=== PATIENT | female | born 1965 | race Caucasian/White ===

== ENCOUNTER 2019-05-02 09:03 | Day surgery (SDC) | payer OTHER ==
[2019-05-02] VITALS (10 sets, daily range): BP systolic 124–183; BP diastolic 55–117
[~2019-05-02] VITALS: Ht 175.3 cm; Wt 81.8 kg
[~2019-05-02 09:03] MED LIST: lisinopril 20mg tablet PO ONE
[2019-05-02] MEDS ORDERED: diphenhydrAMINE 25mg capsule PO PRN (09:35)
[2019-05-02] MEDS ORDERED: normal saline 1,000 ML IV SCH (09:35)
[2019-05-02] MEDS ORDERED: midazolam 2 mg/2 ml injection ONE ×3 (09:45→11:23)
[2019-05-02] MEDS ORDERED: iohexol 350 MG/ML 50ML vial IV ONE (09:46)
[2019-05-02] MEDS ORDERED: fentaNYL/PF 50MCG/1 ML 2ML syringe ONE (09:46)
[2019-05-02] MEDS ORDERED: LIDOcaine 1% (10mg/ml)w/preservative injection 20ml MDV ONE (09:46)
[2019-05-02] MEDS ORDERED: iohexol 350MG/ML 100ml bottle IV ONE ×3 (09:46→11:42)
[2019-05-02] MEDS ORDERED: insulin regular, human 10 units/0.1 ml syringe IV STA (10:09)
[2019-05-02 10:27] LABS: BASOPHILS # (AUTO) 0.1 X10'3 (0-0.2); BASOPHILS % (AUTO) 1.4 % (0-1); EOSINOPHILS # (AUTO) 0.1 X10'3 (0-0.9); EOSINOPHILS % (AUTO) 2.3 % (0-6); HEMATOCRIT 40.5 % (35.0-45.0); HEMOGLOBIN 13.9 g/dl (12.0-16.0); LYMPHOCYTES # (AUTO) 1.3 X10'3 (1.1-4.8); LYMPHOCYTES % (AUTO) 26.7 % (21-51); MEAN CORPUSCULAR HEMOGLOBIN 32.6 PG (27.0-31.0); MEAN CORPUSCULAR HGB CONC 34.4 g/dL (33.0-36.5); MEAN CORPUSCULAR VOLUME 94.7 FL (78-98); MEAN PLATELET VOLUME 10.5 FL (7.4-10.4); MONOCYTES # (AUTO) 0.5 X10'3 (0-0.9); MONOCYTES % (AUTO) 11.2 % (2-12); NEUTROPHILS # (AUTO) 2.7 X10'3 (1.8-7.7); NEUTROPHILS % (AUTO) 58.4 % (42-75); PLATELET COUNT 134 X10'3 (140-440); RED BLOOD COUNT 4.28 X10'6 (4.20-5.60); RED CELL DISTRIBUTION WIDTH 12.3 % (11.5-14.5); WHITE BLOOD COUNT 4.7 X10'3 (4.5-11.0)
[2019-05-02 10:35] LABS: ALBUMIN 3.8 G/DL (3.4-5.0); ANION GAP 8 (8-16); BLOOD UREA NITROGEN 14 MG/DL (7-18); BUN/CREATININE RATIO 21.9 (6.6-38.0); CALCIUM 8.9 MG/DL (8.5-10.1); CHLORIDE 108 MMOL/L (99-107); CREATININE 0.64 MG/DL (0.40-0.90); GLUCOSE 326 MG/DL (70-104); MAGNESIUM 1.9 MG/DL (1.5-2.4); SODIUM 141 MMOL/L (135-145); TOTAL CARBON DIOXIDE 25.2 MMOL/L (24-32); eGFR > 90 ML/MIN
[2019-05-02] MEDS ORDERED: NITR0.4T51 SL (10:41)
[2019-05-02] MEDS ORDERED: CALC-855 PO (10:41)
[2019-05-02] MEDS ORDERED: PRAS10TA6 PO (10:41)
[2019-05-02] MEDS ORDERED: LEVO25TA7 PO (10:41)
[2019-05-02] MEDS ORDERED: ASPI-1265 PO (10:41)
[2019-05-02] MEDS ORDERED: HYDR25TA4 PO (10:41)
[2019-05-02] MEDS ORDERED: GABA-532 PO (10:41)
[2019-05-02] MEDS ORDERED: OMEP20CA11 PO (10:41)
[2019-05-02] MEDS ORDERED: CARV-49 PO (10:41)
[2019-05-02] MEDS ORDERED: EMPA1TAB PO (10:41)
[2019-05-02] MEDS ORDERED: ATOR40TA PO (10:41)
[2019-05-02] MEDS ORDERED: RANO10003 PO (10:41)
[2019-05-02] MEDS ORDERED: MAGN400C PO (10:41)
[2019-05-02] MEDS ORDERED: LISI-600 PO (10:41)
[2019-05-02] MEDS ORDERED: LANTUS SQ (10:41)
[2019-05-02] MEDS ORDERED: diphenhydrAMINE 50 mg/ml inj ONE (10:42)
[2019-05-02 11:05] LABS: LARGE PLATELETS FEW; PLATELET ESTIMATE NORMAL
[2019-05-02] MEDS ORDERED: heparin 1,000unit/ml 10ml vial 10 ML ONE (11:13)
[2019-05-02] MEDS ORDERED: nitroGLYCERIN-Tridil 50MG/D5W 250 ML IV ONE (11:32)
[2019-05-02] MEDS ORDERED: normal saline 1000ml 1,000 ML IV SCH (12:35)
[2019-05-02] MEDS ORDERED: carvedilol 6.25mg tablet PO ONE (20:00)
== END 2019-05-02 15:45 | disposition home or self-care (01) ==
LOC: SSTAY O 09:03
PROVIDERS: ATTEND Internal Medicine Cardiovascular Disease
DX: I25.110 Atherosclerotic heart disease of native coronary artery with unstable angina pectoris (principal); E78.5 Hyperlipidemia, unspecified; I10 Essential (primary) hypertension; E11.9 Type 2 diabetes mellitus without complications; E03.9 Hypothyroidism, unspecified; Z90.710 Acquired absence of both cervix and uterus; Z98.890 Other specified postprocedural states; Z79.899 Other long term (current) drug therapy; Z79.4 Long term (current) use of insulin; Z79.82 Long term (current) use of aspirin; Z95.5 Presence of coronary angioplasty implant and graft
CPT/HCPCS: 36415; 80048; 82948; 83735; 85025; 85610; 93005; 93458; 99152; 99153; C1725; C1769; C1874; C1894; C9600; J1200; J1644; J1815; J2001; J2250; J3010; J7030; Q9967; A4620; A6258; C1760; J3490

== ENCOUNTER 2022-08-04 14:35 | Emergency (ER) | payer OTHER ==
[~2022-08-04] VITALS: Ht 175.3 cm; Wt 78.0 kg
[~2022-08-04 14:35] MED LIST changes: +ASPI-1265 PO; +ATOR40TA PO; +CALC-855 PO; +CARV-49 PO; +EMPA1TAB PO; +GABA-532 PO; +HYDR25TA4 PO; +LANTUS SQ; +LEVO25TA7 PO; +LISI20TA28 PO; +MAGN400C PO; +NITR0.4T51 SL; +OMEP20CA15 PO; +PRAS10TA6 PO; +RANO10003 PO; -lisinopril 20mg tablet PO ONE
[2022-08-04 15:10] VITALS: BP 181/101
[2022-08-04 15:43] LABS: EOSINOPHILS # (AUTO) 0.2 X10'3 (0-0.9); HEMOGLOBIN 13.6 g/dl (12.0-16.0)
[2022-08-04 15:48] LABS: BASOPHILS % (AUTO) 0.8 % (0-1); EOSINOPHILS % (AUTO) 3.2 % (0-6); HEMATOCRIT 40.8 % (35.0-45.0); LYMPHOCYTES # (AUTO) 1.4 X10'3 (1.1-4.8); LYMPHOCYTES % (AUTO) 24.3 % (21-51); MEAN CORPUSCULAR HEMOGLOBIN 31.9 PG (27.0-31.0); MEAN CORPUSCULAR HGB CONC 33.3 g/dL (33.0-36.5); MEAN CORPUSCULAR VOLUME 95.8 FL (78-98); MEAN PLATELET VOLUME 10.1 FL (7.4-10.4); MONOCYTES # (AUTO) 0.6 X10'3 (0-0.9); MONOCYTES % (AUTO) 10.4 % (2-12); NEUTROPHILS # (AUTO) 3.6 X10'3 (1.8-7.7); NEUTROPHILS % (AUTO) 61.3 % (42-75); PLATELET COUNT 153 X10'3 (140-440); RED BLOOD COUNT 4.26 X10'6 (4.20-5.60); RED CELL DISTRIBUTION WIDTH 12.9 % (11.5-14.5); WHITE BLOOD COUNT 5.9 X10'3 (4.5-11.0)
[2022-08-04 16:00] LABS: ALANINE AMINOTRANSFERASE 15 U/L (12-78); ALBUMIN/GLOBULIN RATIO 1.3 (1.1-1.5); ALKALINE PHOSPHATASE 118 IU/L (46-116); ANION GAP 9 (8-16); ASPARTATE AMINO TRANSFERASE 8 U/L (10-37); BILIRUBIN,TOTAL 0.2 MG/DL (0.1-1.0); BLOOD UREA NITROGEN 22 MG/DL (7-18); BUN/CREATININE RATIO 21.4 (6.6-38.0); CALCIUM 9.4 MG/DL (8.5-10.1); CHLORIDE 101 MMOL/L (99-107); CREATININE 1.03 MG/DL (0.40-0.90); GLUCOSE 291 MG/DL (70-104); POTASSIUM 4.1 MMOL/L (3.5-5.1); SODIUM 137 MMOL/L (135-145); TOTAL CARBON DIOXIDE 27.5 MMOL/L (24-32); eGFR 55 ML/MIN
[2022-08-05] MEDS ORDERED: HYDR-3965 PO (13:07)
== END 2022-08-05 01:29 | disposition left against medical advice (07) ==
LOC: ER 14:35
DX: R07.89 Other chest pain (principal); Z53.21 Procedure and treatment not carried out due to patient leaving prior to being seen by health care provider
CPT/HCPCS: 36415; 71045; 80053; 83880; 84484; 85025; 93005

== ENCOUNTER 2022-08-05 12:00 | Emergency (ER) | payer OTHER ==
[~2022-08-05] VITALS: Ht 175.3 cm; Wt 78.2 kg
[2022-08-05 12:02] VITALS: BP 193/86
[2022-08-05] MEDS ORDERED: HYDR-3965 PO (13:07)
== END 2022-08-05 13:36 | disposition home or self-care (01) ==
LOC: ER 12:01
DX: R07.89 Other chest pain (principal); I11.0 Hypertensive heart disease with heart failure; Z88.0 Allergy status to penicillin; Z88.1 Allergy status to other antibiotic agents; Z79.899 Other long term (current) drug therapy; Z79.82 Long term (current) use of aspirin; Z79.84 Long term (current) use of oral hypoglycemic drugs
CPT/HCPCS: 99283